=== PATIENT | female | born 1955 | race Caucasian/White ===

== ENCOUNTER 2024-09-30 08:01 | Outpatient (CLI) | payer MEDICARE ==
[2024-09-30] MEDS ORDERED: Iopamidol 370 76% 100 ML VIAL ONE (09:39)
== END 2024-09-30 08:02 | disposition home or self-care (01) ==
LOC: CT 08:01
PROVIDERS: ATTEND Internal Medicine
DX: R10.11 Right upper quadrant pain (principal); R14.3 Flatulence; K21.9 Gastro-esophageal reflux disease without esophagitis; D18.03 Hemangioma of intra-abdominal structures
CPT/HCPCS: 36415; 74177; 82565